=== PATIENT | male | born 1960 | race Caucasian/White ===

== ENCOUNTER → 2016-11-26 | Outpatient (REF) | payer MEDICARE, MEDICAID, OTHER ==
[~2016-11-26] MED LIST: ADDE30CA3 PO; BENA40TA7 PO; CIPR-249 PO; DIOV320T PO; FLOM5CAP PO; GEMF600T PO; INSUNSD SC; INSUR SC; METF10004 PO; METO50TA7 PO; NOVO70VL SC; PRIL20TA2 PO; TYLE650T30 PO; ZYLO300T4 PO
== END ==
LOC: M SFHCLERA 13:42
PROVIDERS: ATTEND Family Medicine
DX: H53.8 Other visual disturbances (principal)

== ENCOUNTER → 2017-01-28 | Outpatient (REF) | payer MEDICARE, MEDICAID, OTHER ==
[2017-01-28 11:50] LABS: ANION GAP 7 MEQ/L (8-16); BLOOD UREA NITROGEN 23 MG/DL (7-18); CALCIUM LEVEL 9.4 MG/DL (8.5-10.1); CARBON DIOXIDE LEVEL 32 MEQ/L (21-32); CHLORIDE LEVEL 99 MEQ/L (98-107); CREATININE FOR GFR 1.29 MG/DL (0.70-1.30); GLOMERULAR FILTRATION RATE > 60.0 (>56); GLUCOSE, FASTING 239 MG/DL (70-105); POTASSIUM SERUM 3.9 MEQ/L (3.5-5.1); SODIUM LEVEL 138 MEQ/L (136-145)
== END ==
LOC: M SFHCLERA 08:34
PROVIDERS: ATTEND Family Medicine
DX: E11.22 Type 2 diabetes mellitus with diabetic chronic kidney disease (principal)
CPT/HCPCS: 80048; 90471; 90686; G0463

== ENCOUNTER → 2020-06-13 | Outpatient (REF) | payer MEDICARE, MEDICAID, OTHER ==
[~2020-06-13] MED LIST changes: +BENA40TA5 PO; -BENA40TA7 PO; +FLOM0.4C39 PO; -FLOM5CAP PO; -GEMF600T PO; +GEMF600T5 PO; -ZYLO300T4 PO; +ZYLO300T6 PO
== END ==
LOC: M LAB REF 18:41
PROVIDERS: ATTEND Internal Medicine
DX: A09 Infectious gastroenteritis and colitis, unspecified (principal)

== ENCOUNTER → 2020-08-16 | Outpatient (CLI) | payer MEDICARE, MEDICAID ==
--- NOTE | 2020-08-16 12:09 | REP ---
INDICATION: DISC LIKE SYMPTOMS. COMPARISON: None. TECHNIQUE: Sagittal and axial T1 and T2-weighted scans are acquired in the usual fashion with and without fat saturation. Sequences include spin echo, turbo spin-echo, and STIR imaging sequences. FINDINGS: Cervical vertebral body heights are preserved. No bony destructive lesion is seen. Cervical cord is normal in course, caliber, and signal intensity on T1 and T2 weighted scans. Craniocervical junction is unremarkable. Sagittal on axial images taken at C2-C3 demonstrates mild central disc bulging. No cord or significant thecal sac compression is seen. At C3-C4, there is mild diffuse disc bulging. There is early bilateral uncovertebral spurring but neural foramina appear adequate. No spinal stenosis is seen. No focal disc protrusion is seen. At C4-C5, there is degenerative disc narrowing and desiccation. Diffuse disc bulging is seen effacing the ventral subarachnoid space. There is bilateral uncovertebral spurring producing mild foraminal narrowing, left more so than right. At C5-C6, there is degenerative disc narrowing and desiccation. Posterior osteophytic ridging associated with diffuse disc bulging is seen effacing the ventral subarachnoid space but not compressing the cord. There is bilateral uncovertebral spurring and mild bilateral neural foraminal narrowing is seen. At the C6-7 level, there is also degenerative disc narrowing mild in degree. Mild diffuse disc bulging and posterior osteophytic ridging is seen. There is right-sided uncovertebral spurring and mild right-sided neural foraminal narrowing is present at C6-7. The C7-T1 level, there is mild disc space narrowing and diffuse disc bulging is seen effacing the ventral subarachnoid space. No foraminal narrowing is seen. No spinal stenosis is noted. Disc bulging is present at T1-T2 and at T2-T3 in the upper thoracic spine. IMPRESSION: Diffuse degenerative spondylosis change with multilevel neural foraminal narrowing as above. This is most pronounced at C5-6. <Electronically signed by Андрей Barajas > 08/16/20 [id number]
--- NOTE | 2020-08-16 12:17 | REP ---
INDICATION: DISC LIKE SYMPTOMS. COMPARISON: None. TECHNIQUE: Sagittal and axial T1 and T2-weighted scans are acquired in the usual fashion with and without fat saturation. Sequences include spin echo, turbo spin-echo, and STIR imaging sequences. FINDINGS: Lumbar vertebral body heights are preserved. There is no evidence of spondylolysis. No evidence of spondylolisthesis. The tip of the conus medullaris is normal in position and appearance at the T12-L1. Normal caliber aorta. No extra spinal abnormality is observed. Axial and sagittal images taken at the L1-2 disc level are unremarkable. At L2-3, there is no evidence of disc protrusion, central canal stenosis, or foraminal encroachment. At L3-4, there is mild degenerative narrowing of the disc. Minimal diffuse disc bulging is seen indenting the ventral margin of the thecal sac. No spinal stenosis or foraminal narrowing is seen. At L4-5, there is mild degenerative disc narrowing. There is diffuse disc bulging and there is mild neural foraminal narrowing on the left due to disc bulging and facet hypertrophy. Bilateral osteoarthritic facet hypertrophy is present at L4-5. Canal size is borderline. Midline AP dimension of the thecal sac at this level is 9 mm. At L5-S1, there is minimal diffuse disc bulging. Osteoarthritic facet hypertrophy is present bilaterally. No spinal stenosis or foraminal narrowing is seen. IMPRESSION: There is borderline canal size at L4-5 and mild left-sided neural foraminal narrowing is seen at L4-5 due to disc bulging and facet hypertrophy. Diffuse disc bulging at L5-S1 and bilateral osteoarthritic facet hypertrophy present at the L5-S1 level. <Electronically signed by Андрей Barajas > 08/16/20 [id number]
== END ==
LOC: M PLARAD 10:28
PROVIDERS: ATTEND Chiropractor
DX: M54.13 Radiculopathy, cervicothoracic region (principal); M51.36 Other intervertebral disc degeneration, lumbar region; M99.03 Segmental and somatic dysfunction of lumbar region; M99.01 Segmental and somatic dysfunction of cervical region

== ENCOUNTER → 2020-10-16 | Outpatient (CLI) | payer MEDICARE, MEDICAID ==
[~2020-10-16] MED LIST changes: +ALLO300T2 PO; +AMLO10TA PO; +ATEN50TA9 PO; +CARV12.5 PO; +CHLO50TA PO; +FAMO20TA PO; +HYDR-3490 PO; +IRBE300T7 PO; +LANTINJ4 SC; +LEXA1TAB PO; +LIDO5DIS41 TD; +MAGN200T PO; +METF-877 PO; +RANO500T7 PO; +SIMV10TA21 PO; +STRA100C PO; +TIMO0.5S39 OP; +VALA1TAB5 PO; +VALS1TAB66 PO; +VALS1TAB68 PO
== END ==
LOC: M LABSMTC 12:55
PROVIDERS: ATTEND Anesthesiology
DX: Z01.812 Encounter for preprocedural laboratory examination (principal)

== ENCOUNTER 2020-10-18 10:39 | Day surgery (SDC) | payer MEDICARE, MEDICAID ==
[~2020-10-18] VITALS: Ht 177.8 cm; Wt 103.8 kg
[~2020-10-18 10:39] MED LIST changes: +NS 1,000 ML IV SCH
[2020-10-18] MEDS ORDERED: propofoL 200 MG/20 ML VIAL As Ordered ONE (11:31)
[2020-10-18] MEDS ORDERED: LIDOCAINE 2% 100MG/5ML SDV (FOR ANES.) As Ordered ONE (11:31)
[2020-10-18] MEDS ORDERED: fentaNYL 100 MCG/2 ML INJECTION (J3010) As Ordered ONE (12:40)
--- NOTE | 2020-10-18 12:54 | ROOR ---
Patient Name: Clint Fragoso Procedure Date: 10/18/2020 12:38 PM Date of : 1960 Age: 60 Room: [facility] Gender: Male Note Status: Finalized Procedure: Upper Endoscopy + Biopsies Indications: Heartburn, Exclusion of Martines's esophagus Providers: Cresencio Markham MD Referring MD: JANIYA EPSTEIN MD Requesting Provider: Medicines: Monitored Anesthesia Care Complications: No immediate complications. Procedure: Pre-Anesthesia Assessment: - The heart rate, respiratory rate, oxygen saturations, blood pressure, adequacy of pulmonary ventilation, and response to care were monitored throughout the procedure. The Endoscope was introduced through the mouth, and advanced to the second part of duodenum. The upper GI endoscopy was accomplished without difficulty. The patient tolerated the procedure well. Findings: The Z-line was regular and was found 40 cm from the incisors. Multiple biopsies were obtained with cold forceps for evaluation to rule out Martines's Esophagus randomly at the gastroesophageal junction. No other significant abnormalities were identified in a careful examination of the stomach. The exam of the duodenum was otherwise normal. Biopsies for histology were taken with a cold forceps in the first portion of the duodenum for evaluation of celiac disease. The exam was otherwise without abnormality. Impression: - Z-line regular, 40 cm from the incisors. - The examination was otherwise normal. - Multiple biopsies were obtained at the gastroesophageal junction. - Biopsies were taken with a cold forceps for evaluation of celiac disease. - The examination was otherwise normal. Recommendation: - Patient has a contact number available for emergencies. The signs and symptoms of potential delayed complications were discussed with the patient. Return to normal activities tomorrow. Written discharge instructions were provided to the patient. - Discharge patient to home. - Follow an antireflux regimen. - Continue present medications. - Await pathology results. - Telephone GI clinic for pathology results in 1 week. - Return to referring physician. - The findings and recommendations were discussed with the patient's family. Procedure Code(s): --- Professional --- 91312, Esophagogastroduodenoscopy, flexible, transoral; with biopsy, single or multiple Diagnosis Code(s): --- Professional --- R12, Heartburn CPT copyright 2019 [employer]. All rights reserved. The codes documented in this report are preliminary and upon as400 developer review may be revised to meet current compliance requirements. Cresencio Markham MD Cresencio Markham MD 10/18/2020 12:53:44 PM Electronically signed by Cresencio Markham MD Number of Addenda: 0 Note Initiated On: 10/18/2020 12:38 PM Estimated Blood Loss: Estimated blood loss: none.
--- NOTE | 2020-10-18 13:13 | ROOR ---
Patient Name: Clint Fragoso Procedure Date: 10/18/2020 12:40 PM Date of : 1960 Age: 60 Room: [facility] Gender: Male Note Status: Finalized Procedure: Total Colonoscopy to Cecum + ileoscopy + Bx Indications: Abdominal pain in the left lower quadrant, Lower abdominal pain, Change in bowel habits Providers: Cresencio Markham MD Referring MD: JANIYA EPSTEIN MD Requesting Provider: Medicines: Monitored Anesthesia Care Complications: No immediate complications. Procedure: Pre-Anesthesia Assessment: - The heart rate, respiratory rate, oxygen saturations, blood pressure, adequacy of pulmonary ventilation, and response to care were monitored throughout the procedure. The Colonoscope was introduced through the anus and advanced to the terminal ileum, with identification of the appendiceal orifice and IC valve. The colonoscopy was performed without difficulty. The patient tolerated the procedure well. The quality of the bowel preparation was excellent. Findings: The perianal and digital rectal examinations were normal. Non-bleeding internal hemorrhoids were found during retroflexion. The hemorrhoids were small and Grade I (internal hemorrhoids that do not prolapse). Multiple small and large-mouthed diverticula were found in the recto-sigmoid colon, sigmoid colon and descending colon. The terminal ileum appeared normal. Biopsies for histology were taken with a cold forceps from the ascending colon, transverse colon, descending colon and rectosigmoid colon for evaluation of microscopic colitis. The exam was otherwise without abnormality on direct and retroflexion views. Impression: - Non-bleeding internal hemorrhoids. - Diverticulosis in the recto-sigmoid colon, in the sigmoid colon and in the descending colon. - The examined portion of the ileum was normal. - The examination was otherwise normal on direct and retroflexion views. - Biopsies were taken with a cold forceps from the ascending colon, transverse colon, descending colon and rectosigmoid colon for evaluation of microscopic colitis. - The exam was otherwise normal to the cecum. Recommendation: - Patient has a contact number available for emergencies. The signs and symptoms of potential delayed complications were discussed with the patient. Return to normal activities tomorrow. Written discharge instructions were provided to the patient. - Discharge patient to home. - Continue present medications. - Await pathology results. - Telephone GI clinic for pathology results in 1 week. - Repeat colonoscopy in 10 years for screening purposes. - Return to referring physician. - The findings and recommendations were discussed with the patient's family. Procedure Code(s): --- Professional --- 40215, Colonoscopy, flexible; with biopsy, single or multiple Diagnosis Code(s): --- Professional --- K64.0, First degree hemorrhoids R10.32, Left lower quadrant pain R10.30, Lower abdominal pain, unspecified R19.4, Change in bowel habit K57.30, Diverticulosis of large intestine without perforation or abscess without bleeding CPT copyright 2019 [employer]. All rights reserved. The codes documented in this report are preliminary and upon dish carrier review may be revised to meet current compliance requirements. Cresencio Markham MD Cresencio Markham MD 10/18/2020 1:13:36 PM Electronically signed by Cresencio Markham MD Number of Addenda: 0 Note Initiated On: 10/18/2020 12:40 PM Estimated Blood Loss: Estimated blood loss: none.
[2020-10-18 13:44] VITALS: BP 148/93
== END 2020-10-18 13:46 | disposition home or self-care (01) ==
LOC: M OPP 10:39
PROVIDERS: ATTEND Internal Medicine Gastroenterology
DX: K57.30 Diverticulosis of large intestine without perforation or abscess without bleeding (principal); K64.0 First degree hemorrhoids; R10.32 Left lower quadrant pain; R19.4 Change in bowel habit; R12 Heartburn; K21.9 Gastro-esophageal reflux disease without esophagitis; R19.7 Diarrhea, unspecified; I20.9 Angina pectoris, unspecified; Z79.4 Long term (current) use of insulin; Z79.899 Other long term (current) drug therapy; Z88.0 Allergy status to penicillin; Z88.5 Allergy status to narcotic agent; Z88.6 Allergy status to analgesic agent; Z86.718 Personal history of other venous thrombosis and embolism; Z85.46 Personal history of malignant neoplasm of prostate; E10.9 Type 1 diabetes mellitus without complications
CPT/HCPCS: 43239; 45380; 88305; J3010

== ENCOUNTER → 2020-10-24 | Outpatient (REF) | payer MEDICARE, MEDICAID ==
[~2020-10-24] MED LIST changes: -NS 1,000 ML IV SCH
== END ==
LOC: M LAB REF 11:32
PROVIDERS: ATTEND Internal Medicine Gastroenterology
DX: K52.9 Noninfective gastroenteritis and colitis, unspecified (principal); K21.9 Gastro-esophageal reflux disease without esophagitis

== ENCOUNTER → 2021-10-06 | Outpatient (CLI) | payer MEDICARE, MEDICAID ==
[~2021-10-06] MED LIST changes: -BENA40TA5 PO; +BENA40TA84 PO; +CAPTOpril 12.5 MG TAB PO ONE
== END ==
LOC: M RAD 06:36
PROVIDERS: ATTEND Family Medicine
DX: I10 Essential (primary) hypertension (principal)

== ENCOUNTER 2023-04-21 16:51 | Emergency (ER) | payer MEDICARE, MEDICAID ==
[~2023-04-21] VITALS: Ht 177.8 cm; Wt 109.1 kg
[~2023-04-21 16:51] MED LIST changes: -CAPTOpril 12.5 MG TAB PO ONE; +IRBE300T25 PO; -IRBE300T7 PO
[2023-04-21] MEDS ORDERED: FLUORESCEIN OPHTH 1MG STRIP OD ONE (18:30)
[2023-04-21] MEDS ORDERED: PROPARACAINE 0.5% OPHTH SOL 15ML OD ONE (18:30)
[2023-04-21 19:07] VITALS: BP 137/78; TEMP 97.6; O2SAT 99
== END 2023-04-21 19:16 | disposition home or self-care (01) ==
LOC: M ED 16:51
DX: T15.01XA Foreign body in cornea, right eye, initial encounter (principal); E11.9 Type 2 diabetes mellitus without complications; I10 Essential (primary) hypertension; F90.9 Attention-deficit hyperactivity disorder, unspecified type; Z88.0 Allergy status to penicillin; Z88.6 Allergy status to analgesic agent; Z88.5 Allergy status to narcotic agent; Z88.8 Allergy status to other drugs, medicaments and biological substances; Z79.4 Long term (current) use of insulin; Z79.83 Long term (current) use of bisphosphonates; Z79.899 Other long term (current) drug therapy